=== PATIENT | female | born 1985 | race Caucasian/White ===

== ENCOUNTER 2018-01-03 10:04 | Emergency (ER) | payer MEDICAID ==
[~2018-01-03] VITALS: Ht 162.6 cm; Wt 65.9 kg
[2018-01-03 11:49] VITALS: BP 110/62
== END 2018-01-03 11:51 | disposition home or self-care (01) ==
LOC: ER 10:05
DX: R29.810 Facial weakness (principal); R20.0 Anesthesia of skin; M62.830 Muscle spasm of back
CPT/HCPCS: 93005; 99283